=== PATIENT | male | born 1940 | race Caucasian/White ===

== ENCOUNTER 2017-09-09 11:29 | Outpatient (CLI) | payer MEDICARE, OTHER ==
[~2017-09-09] VITALS: Ht 188 cm; Wt 88.6 kg
--- NOTE | ~2017-09-09 | OP ---
PATIENT NAME: VEGA DIAZ MEDICAL RECORD: [id number] :38 LOCATION:D.[facility] ADMISSION DATE: SURGEON: MARSHA BURKETT MD DATE OF OPERATION: 09/09/2017 PREOPERATIVE DIAGNOSES: 1. End-of-life generator. 2. Bradycardia. POSTOPERATIVE DIAGNOSES: 1. End-of-life generator. 2. Bradycardia. PROCEDURE: Left subclavian vein dual lead pacemaker generator exchange. SURGEON: Marsha Burkett MD REPORT OF PROCEDURE: The patient's left chest was prepped and draped in sterile fashion. A total of 20 mL of 1% lidocaine with epinephrine was infused into the surrounding tissues. A skin incision was made overlying the indwelling pacemaker. We dissected down to the pacemaker and we were able to eviscerate this through the wound. The leads were removed from the pacemaker and placed into a new one immediately due to the fact that the patient was dependent on the pacemaker. The pacemaker was functioning appropriately. This was then placed back into the subcutaneous pouch. We sutured it down with a single 0 Tycron. The subcutaneous tissues were irrigated out and then reapproximated with interrupted 3-0 Vicryls and the skin was closed with running subcutaneous 5-0 Monocryl. COMPLICATIONS: None. CONDITION: Stable. ANESTHESIA: Local MAC. BLOOD LOSS: Minimal. TRANSINT:[id number] Voice Confirmation ID: [id number] DOCUMENT ID: [id number] MARSHA BURKETT MD at 0956 CC: DENNIS BOOTH MD [id number] DICTATION DATE: 09/09/17 1527 CERTIFIED SHORTHAND REPORTER: 09/09/17 1554 DEP CLI 09/09/[address] [address]
--- NOTE | ~2017-09-09 | HEMODYNAMI ---
PATIENT:VEGA DIAZ MEDICAL RECORD: [id number] : 38 LOCATION:[facility] ADMISSION DATE: 09/09/17 Generatedon:09/09/201715:25 Patient name: VEGA DIAZ Patient #: [id number] SSN: : 1940 Date of study: 09/09/2017 Page: Of Hemodynamic Procedure Report Patient Data Patient Demographics Procedure consent was obtained First Name: VEGA Gender: Male Last Name: EMILY : 1940 Middle Initial: Jeannine Age: 77 year(s) Patient #: [id number] Race: Unknown Additional ID: [id number] Contact details [address]: [address] [place] [address] State: [place] City: [place] Zip code: [address] Past Medical History Allergies: No known allergies Admission Admission Data Admission Date: 09/09/2017 Admission Time: 11:29 Procedure Procedure Types Cath Procedure Diagnostic Procedure PPM/ICD Permanent Pacer Generator Exg. Procedure Description Procedure Date Procedure Date: 09/09/2017 Procedure Start Time: 15:06 Procedure Staff Name Function Tono Painting MD Performing Physician Fran Jimenez MD Assisting physician Jeovany Dubnar RT Monitor Tia Foley RT Scrub Mason Sousa RN Nurse Procedure Data Cath Procedure Estimated blood loss: 10 ml Procedure Medications Medication Administration Route Dosage Ancef (1Gm/50ml NS) I.V.P.B 1 g Ancef Irrigation Topical 1 g (1gm/500ml NS) Fentanyl I.V. 50 mcg Versed I.V. 1 mg Fentanyl I.V. 50 mcg Versed I.V. 1 mg Hemodynamics Rest Heart Rate: 60 (bpm) Snapshots Pre Cath Intra NCS Post Cath Vital Signs Time Heart Resp SPO2 etCO2 NIBP (mmHg) Rhythm Pain Sedation Rate (ipm) (%) (mmHg) Status Level (bpm) 15:02:53 60 18 96 0 144/82(107) NSR 0 (11) 10(A) , No pain 15:07:06 60 17 95 0 145/83(113) NSR 0 (11) 10(A) , No pain 15:11:17 61 18 90 0 124/84(104) NSR 0 (11) 10(A) , No pain 15:15:26 60 18 90 0 128/73(98) NSR 0 (11) 10(A) , No pain 15:19:42 60 17 94 0 125/65(96) NSR 0 (11) 10(A) , No pain 15:24:04 62 16 94 0 132/75(100) NSR 0 (11) 10(A) , No pain Medications Time Medication Route Dose Verified Delivered Reason Notes Effectiv eness by by 14:50:06 Ancef I.V.P.B 1 g Judaism Mason Per (1Gm/50ml Barbara Sousa RN physician NS) 14:50:26 Ancef Topical 1 g Judaism Mason Per Irrigation Barbara Sousa RN physician (1gm/500ml NS) 15:05:00 Fentanyl I.V. 50 Fran [facility] [place] Barbara Sousa RN sedation 15:05:07 Versed I.V. 1 mg Fran Sousa RN sedation 15:12:31 Fentanyl I.V. 50 Fran [facility] [place] Barbara Sousa RN sedation 15:12:36 Versed I.V. 1 mg Fran Sousa RN sedation Procedure Log Time Note 14:36:06 Informed consent obtained and on chart 14:36:14 Diagnostic Cath Status : Elective 14:37:01 Mason Sousa RN sent for patient. Start room use. 14:37:04 Time tracking: Regular hours 14:37:11 Plan of Care:Hemodynamics will remain stable., Cardiac rhythm will remain stable., Comfort level will be maintained., Respiratory function will remain adequate., Patient/ family verbilizes understanding of procedure., Procedure tolerated without complication., Recovers from procedure without complications.. 14:49:20 Patient received from Pre/Post Procedure Room to CCL 3 Alert and oriented. Tansferred to table in Supine position. 14:50:06 Ancef (1Gm/50ml NS) 1 g I.V.P.B was administered by Mason Sousa RN; Per physician; 14:50:26 Ancef Irrigation (1gm/500ml NS) 1 g Topical was administered by Mason Sousa RN; Per physician; 14:50:31 Vital chart was started 14:51:51 Warm blankets applied, and geraldine hugger turned on for patient comfort. 14:51:51 Correct patient and procedure confirmed by team. 14:51:52 ECG and BP/O2 sat monitors applied to patient. 14:51:53 Baseline sample Acquired. 14:51:57 Rhythm: paced 14:51:59 Full Disclosure recording started 14:52:18 H&P Date Dictated: 08/26/2017 Within 30 days and on chart., H&P Addendum completed by physician on day of procedure. (MUST COMPLETE FOR ALL OUTPATIENTS). 14:52:20 Pre-procedure instructions explained to patient. 14:52:21 Pre-op teaching completed and patient verbalized understanding. 14:52:25 Family in waiting room. 14:52:28 Patient NPO since Breakfast. 14:52:35 Patient allergic to No known allergies 14:52:40 Is patient on blood thinner?Yes 14:52:46 ACC The patient was administered the following blood thiners within the last 24 hours: ACCAspirin 14:52:51 Patient diabetic? No. 14:52:54 ----Pre-sedation anethsthesia assessment.---- 14:52:57 Previous problem with sedation/anesthesia? No ? 14:53:05 Snore? No 14:53:07 Sleep apnea? No 14:53:10 Deviated septum? No 14:53:12 Opens mouth fully? Yes 14:53:14 Sticks out tongue? Yes 14:53:17 Airway obstruction? No ? 14:53:28 Dentures? Yes PARTIAL IN 14:53:40 IV patent on arrival in left forearm with 0.9% NaCl at [facility]. 14:53:50 Left chest area was prepped with chlora-prep and draped in sterile fashion 14:53:52 Alarms reviewed by Timmy Trejo 14:57:59 Medtronic Adapta PPM Dual Generator [id number] opened to sterile field. 14:58:29 5.0 Monocryl PS3 [id number] opened to sterile field. 14:58:31 3.0 Vicryl Single Pack [id number] opened to sterile field. 14:58:32 2.0 Ticron Multipack ([id number]) opened to sterile field. 15:00:04 Medtronic sales representative groceries LEANDER [employer]PIO present for procedure. 15:00:16 Pre sharps counted by scrub and verified by RN: Sutures: 7; Sponges: 5; Stick needles: 0; Skin needles: 2; Blade: 1; Cautery: 1 15:00:20 Grounding pad site Left thigh. 15:01:39 Vital chart was stopped 15:01:40 Vital chart was started 15:03:14 Sharps counted by scrub and verified by R.N. 15:03:16 Physician paged 15::18 Physician arrived 15::19 --------ALL STOP TIME OUT------ 15::19 Final Timeout: patient, procedure, and site verified with staff and physician. All members of the team are in agreement. 15:03:38 Left chest site verified by team. 15:03:43 Physical assessment completed. ASA score P 2 - A patient with mild systemic disease as per Fran Jimenez MD. 15:03:49 Sedation plan: IV Moderate Sedation Medication:Versed, Fentanyl 15:05:00 Fentanyl 50 mcg I.V. was administered by Mason Sousa RN; for sedation; 15:05:07 Versed 1 mg I.V. was administered by Mason Sousa RN; for sedation; 15:06:39 Lidocaine 1% w/epi was administered to left subclavicular area by Fran Jimenez MD . 15:08:14 Incision made to left subclavicular area. 15:09:07 Mepilex Dressing ([id number]) opened to sterile field. 15:10:30 Generator pocket made/opened. 15:11:14 PPM Dual was removed.. 15:12:06 PPM Dual was attached to lead(s) and inserted into pocket. 15:12:31 Fentanyl 50 mcg I.V. was administered by Mason Sousa RN; for sedation; 15:12:36 Versed 1 mg I.V. was administered by Mason Sousa RN; for sedation; 15:12:40 Device pocket was irrigated with Ancef. 15:14:54 Generator was sutured in place with 2-0 ticron. 15:17:23 Subcutaneous closure was completed with 3-0 vicryl plus. 15:19:14 Skin closure was completed with 5-0 monocryl. 15:19:22 Procedure ended.(Physican Out) 15:21:56 Post sharps counted by scrub and verified by RN: Sutures: 7; Sponges: 5; Stick needles: 0; Skin needles: 2; Blade: 1; Cautery: 1 15:22:03 Sharps counted by scrub and verified by R.N. 15:22:12 Lt Chest incision was dressed with Mepilex dressing. 15:22:45 Insertion/operative site no bleeding no hematoma. 15:22:52 Post-procedure physical assessment completed. ASA score P 2 - A patient with mild systemic disease as per Fran Jimenez MD. 15:22:56 Post procedure rhythm: paced 15:22:59 Estimated blood loss: 10 ml 15:23:01 Post procedure instruction explained to patient.Patient verbalizes understanding. 15:23:02 Patient needs reinforcement of post procedure teaching. 15:23:03 Procedure and supply charges have been captured, reviewed, submitted and are correct. 15:23:54 See physician's report for complete and final results. 15:23:57 Report given to Pre/Post Procedure Room. 15:24:00 Patient transfered to Pre/Post Procedure Room with Stretcher. 15:24:06 End room use (Document Last) 15:25:03 Vital chart was stopped Device Usage Item Name Manufacture Quantity Catalog Hospital Part Current Minimal Lot# / Number Charge Number Stock Stock Serial# Code Medtronic Medtronic 1 [id number] [id number] 5 Adapta PPM Dual Generator ADDR01 5.0 Monocryl Ethicon 1 [id number] 163870 5 PS3 [id number] 3.0 Vicryl Ethicon 1 [id number] 448132 413969 5 Single Pack [id number] 2.0 Ticron Ethicon 8 [id number] 711565 31880 728213 5 Multipack ([id number]) Mepilex Cardinal 1 [id number] 387236 [id number] [id number] 5 Dressing Health (139461) Signature Audit [place] Stage Time Signature Unsigned Intra-Procedure 09/09/2017 Jeovany Dunbar 3:25:00 PM RT(R) (CV) Signatures Monitor : Jeovany Dunbar RT Signature : Date : Time : [address] [place] [address]
[2017-09-09] MEDS ORDERED: BAYER CHEWABLE81 MG PO (11:47)
[2017-09-09 12:08] VITALS: BP 134/69; Ht 188 cm; Wt 88.6 kg
[2017-09-09 12:12] LABS: HEMATOCRIT 38.3 % (42.0-54.0); MCH 31.2 pg (26.0-34.0); MCHC 33.9 g/dL (31.0-37.0); MCV 91.8 fL (80.0-100.0); MEAN PLATELET VOLUME 10.4 fL (7.4-10.4); RBC 4.17 10x6/uL (4.20-6.10); RDW 12.9 % (11.5-14.5); WBC 7.7 10x3/uL (4.8-10.8)
[2017-09-09 12:37] LABS: POTASSIUM - SERUM 4.7 mmol/L (3.5-5.1)
[2017-09-09 12:38] LABS: ANION GAP 12.9 mmol/L (8-16); CALCIUM 9.3 mg/dL (8.5-10.1); CARBON DIOXIDE 27.8 mmol/L (21.0-32.0); CREATININE - SERUM 1.1 mg/dL (0.6-1.3)
[2017-09-09 12:45] LABS: APTT 29.7 SECONDS (22.8-39.4); INR 0.95 (0.85-1.17); PROTIME 12.3 SECONDS (11.6-15.0)
[2017-09-09] MEDS ORDERED: HYDROCODONE-APA1 TAB PO (15:22)
== END 2017-09-09 16:50 | disposition home or self-care (01) ==
LOC: D.CATH 11:29
PROVIDERS: Internal Medicine Interventional Cardiology
DX: Z45.010 Encounter for checking and testing of cardiac pacemaker pulse generator [battery] (principal); I49.5 Sick sinus syndrome; Z01.812 Encounter for preprocedural laboratory examination; Z01.810 Encounter for preprocedural cardiovascular examination